=== PATIENT | male | born 1995 ===

== ENCOUNTER 2018-03-14 11:50 | Emergency (ER) | payer OTHER ==
[2018-03-14 11:59] VITALS: BMI 25.9
[2018-03-14 12:01] VITALS: RESP 18
[2018-03-14 12:53] LABS: URINE AMORPHOUS SEDIMENT RARE /ul (<OCC); URINE BACTERIA RARE (<OCC); URINE BILIRUBIN NEGATIVE (NEGATIVE); URINE BLOOD NEGATIVE (NEGATIVE); URINE CLARITY Hazy (Clear); URINE COLOR Yellow (YELLOW); URINE GLUCOSE (UA) NORMAL (Normal); URINE LEUKOCYTE ESTERASE NEG Leu/uL (Negative); URINE PROTEIN NEGATIVE (NEGATIVE); URINE UROBILINOGEN NORMAL mg/dL (0.2-1.0)
[2018-03-14 13:43] LABS: BASO # 0.1 K/uL (0.0-0.2); BASO % 0.8 % (0.0-2.0); EOS # 0.3 K/uL (0.0-0.7); EOS % 4.6 % (0.0-4.0); HEMOGLOBIN 15.2 g/dL (12.0-18.0); LYMPH # 2.3 K/uL (1.0-4.3); LYMPH % 29.9 % (20.0-40.0); MEAN CELL VOLUME 80.6 fL (80.0-94.0); MEAN CORPUSCULAR HEMOGLOBIN 27.4 pg (27.0-31.0); MEAN PLATELET VOLUME 8.2 fL (7.2-11.7); MONO # 0.6 K/uL (0.0-0.8); MONO % 7.9 % (0.0-10.0); NEUT # 4.4 K/uL (1.8-7.0); NEUT % 56.8 % (50.0-75.0); NRBC % 0.1 % (0.0-2.0); RBC 5.54 Mil/uL (4.40-5.90); RED CELL DISTRIBUTION WIDTH 13.1 % (11.5-14.5); WHITE BLOOD COUNT 7.7 K/uL (4.8-10.8)
[2018-03-14] MEDS ORDERED: Iohexol 240 (50 ml) PO STA (13:46)
[2018-03-14 13:55] LABS: BLOOD UREA NITROGEN 14 mg/dL (9-20); GFR AFRICAN-AMERICAN > 60; GFR NON-AFRICAN AMERICAN > 60
[2018-03-14 13:56] LABS: ALB/GLOB RATIO 1.5 (1.0-2.1); ALBUMIN 4.8 g/dL (3.5-5.0); ALT/SGPT 36 U/L (21-72); AST/SGOT 30 U/L (17-59); CALCIUM 9.9 mg/dl (8.6-10.4); LIPASE 86 U/L (23-300)
[2018-03-14] MEDS ORDERED: Iohexol 240 (50 ml) ONE (14:16)
[2018-03-14] MEDS ORDERED: Iodixanol 320 MG/ML 100 ML BOTTLE IV ONE (15:14)
--- NOTE | 2018-03-14 15:52 | CT ---
PROCEDURE: CT Abdomen and Pelvis with contrast HISTORY: RLQ abd pain, vomiting, COMPARISON: None. TECHNIQUE: Following oral and intravenous contrast administration, a CT examination of the abdomen and pelvis performed from the domes of the diaphragms to the symphysis pubis with reformatted datasets provided not only axial but also sagittal and coronal series. Contrast dose: Visipaque 320, 100 cc Radiation dose: Total exam DLP = 298.38 mGy-cm. This CT exam was performed using one or more of the following dose reduction techniques: Automated exposure control, adjustment of the mA and/or kV according to patient size, and/or use of iterative reconstruction technique. FINDINGS: LOWER THORAX: Linear atelectasis or fibrosis seen at the right lower lobe base minimally. No pleural or pericardial effusion identified. LIVER: Unremarkable. No gross lesion or ductal dilatation. GALLBLADDER AND BILE DUCTS: Unremarkable. PANCREAS: Unremarkable. No gross lesion or ductal dilatation. SPLEEN: Unremarkable. ADRENALS: Unremarkable. No mass. KIDNEYS AND URETERS: Unremarkable. No hydronephrosis. No solid mass. VASCULATURE: Unremarkable. No aortic aneurysm. BOWEL: Study appears unremarkable. There is no bowel obstruction or prominent mural thickening throughout small large-bowel loops. Moderate fecal loading is seen throughout the colon diffusely. This could reflect mild constipation. Clinically correlate further. APPENDIX: Normal appendix. PERITONEUM: Unremarkable. No free fluid. No free air. LYMPH NODES: Unremarkable. No enlarged lymph nodes. BLADDER: Unremarkable. REPRODUCTIVE: Unremarkable. BONES: No acute fracture. OTHER FINDINGS: None. IMPRESSION: 1. No CT evidence to suggest appendicitis. Normal-appearing appendix identified. 2. Mildly prominent fecal loading diffusely noted, borderline for constipation. 3. No ascites, measure edema, significant lymphadenopathy or free intraperitoneal gas collection appreciated.
--- NOTE | 2018-03-14 16:28 | C.PDOC ---
History Of Present Illness <Leidy Mead - Last Filed: 03/14/18 16:25> <Shyam Yeung DO - Last Filed: 03/14/18 17:52> 22-year-old male, presents to the emergency department with complaints of pain to right sided abdomen ongoing x2 weeks. Patient notes pain has been worse over the past two days, prompting visit. Pain worsens with certain leg movement and walking. Patient denies nausea/vomiting, fever, chills, chest pain or any other associated symptoms. No other complaints at this time. RLQ straight leg raise. (Shyam Yeung DO) <Leidy Mead - Last Filed: 03/14/18 16:25> <Shyam Yeung DO - Last Filed: 03/14/18 17:52> Time Seen by Provider: 03/14/18 12:52 Chief Complaint (Nursing): Abdominal Pain Past Medical History - Social History Hx Alcohol Use: No Hx Substance Use: No - Immunization History Hx Tetanus Toxoid Vaccination: No Hx Influenza Vaccination: No Hx Pneumococcal Vaccination: No <Leidy Mead - Last Filed: 03/14/18 16:25> Vital Signs: Last Vital Signs Temp 98.2 F 03/14/18 17:14 Pulse 84 03/14/18 17:14 Resp 18 03/14/18 17:14 BP 125/82 03/14/18 17:14 Pulse Ox 98 03/14/18 17:14 ED Course And Treatment - Laboratory Results Result Diagrams: 03/14/18 13:36 03/14/18 13:36 O2 Sat by Pulse Oximetry: 99 <Leidy Mead - Last Filed: 03/14/18 16:25> - Laboratory Results Result Diagrams: 03/14/18 13:36 03/14/18 13:36 <Shyam Yeung DO - Last Filed: 03/14/18 17:52> Disposition - Disposition Disposition Time: 16:26 <Leidy Mead - Last Filed: 03/14/18 16:25> <Shyam Yeung DO - Last Filed: 03/14/18 17:52> - Disposition Referrals: [facility] [Outside] Disposition: HOME/ ROUTINE Condition: GOOD Additional Instructions: Follow up with the medical doctor/clinic within 1-2 days, Return if worsened. Prescriptions: diaZEpam [Valium] 5 mg PO TID #21 tab Ibuprofen [Motrin] 600 mg PO TID #21 tab Instructions: Muscle Strain Forms: [facility] (Eth[place]ian) - Clinical Impression Clinical Impression: Muscle strain
[2018-03-14] MEDS ORDERED: Dexamethasone 4 mg/1 ml IVP STA (16:42)
[2018-03-14 17:15] VITALS: BP 125/82; PULSE 84; TEMP 98.2; O2SAT 98
--- NOTE | 2018-03-14 17:53 | C.PDOC ---
History Of Present Illness 22-year-old male, presents to the emergency department with complaints of pain to right sided abdomen ongoing x2 weeks. Patient notes pain has been worse over the past two days, prompting visit. Pain worsens with certain leg movement and walking. Patient denies nausea/vomiting, fever, chills, chest pain or any other associated symptoms. No other complaints at this time. Time Seen by Provider: 03/14/18 12:52 Chief Complaint (Nursing): Abdominal Pain History Per: Patient History/Exam Limitations: no limitations Onset/Duration Of Symptoms: Days Current Symptoms Are (Timing): Still Present Severity: Moderate Exacerbating Factors: None Alleviating Factors: None Recent travel outside of the [place]: No Past Medical History Reviewed: Historical Data, Nursing Documentation, Vital Signs Vital Signs: Last Vital Signs Temp 98.2 F 03/14/18 17:14 Pulse 84 03/14/18 17:14 Resp 18 03/14/18 17:14 BP 125/82 03/14/18 17:14 Pulse Ox 98 03/14/18 18:42 Family History: States: No Known Family Hx - Social History Hx Alcohol Use: No Hx Substance Use: No - Immunization History Hx Tetanus Toxoid Vaccination: No Hx Influenza Vaccination: No Hx Pneumococcal Vaccination: No Review Of Systems Except As Marked, All Systems Reviewed And Found Negative. Constitutional: Negative for: Fever, Chills Cardiovascular: Negative for: Chest Pain Respiratory: Negative for: Shortness of Breath Gastrointestinal: Positive for: Abdominal Pain. Negative for: Nausea, Vomiting , Diarrhea, Constipation Musculoskeletal: Negative for: Back Pain Skin: Negative for: Rash Neurological: Negative for: Weakness, Numbness, Headache, Dizziness Physical Exam - Physical Exam Appears: Non-toxic, No Acute Distress Skin: Normal Color, Warm, Dry, No Rash Head: Atraumatic, Normacephalic Eye(s): bilateral: Normal Inspection, PERRL, EOMI Nose: Normal Oral Mucosa: Moist Lips: Normal Appearing Neck: Normal ROM, Supple Chest: Symmetrical, No Tenderness Cardiovascular: Rhythm Regular, No Friction Rub, No Murmur Respiratory: Normal Breath Sounds, No Accessory Muscle Use, No Wheezing Gastrointestinal/Abdominal: Bowel Sounds (active), Soft, Tenderness (RLQ), No Guarding, No Rebound Back: No CVA Tenderness, No Vertebral Tenderness, No Paraspinal Tenderness, Straight Leg Raising Extremity: Normal ROM, No Deformity, No Swelling Neurological/Psych: Oriented x3, Normal Speech, Normal Motor Gait: Steady ED Course And Treatment - Laboratory Results Result Diagrams: 03/14/18 13:36 03/14/18 13:36 O2 Sat by Pulse Oximetry: 98 (RA) Pulse Ox Interpretation: Normal Medical Decision Making Medical Decision Making: Plan: * Bloodwork * CT Abd/Pel * UA * Decadron, Toradol, Valium, Zofran * Reassess and Disposition On re-exam, the patient reports improvement of symptoms. Lungs are CTA, heart is RRR, abdomen is soft, non-tender and tolerating PO well. Follow up with the medical doctor within 1-2 days. return if worsened. Disposition - Disposition Referrals: [facility] [Outside] Disposition: HOME/ ROUTINE Disposition Time: 16:30 Condition: GOOD Additional Instructions: Follow up with the medical doctor/clinic within 1-2 days, Return if worsened. Prescriptions: diaZEpam [Valium] 5 mg PO TID #21 tab Ibuprofen [Motrin] 600 mg PO TID #21 tab Instructions: Muscle Strain Forms: [employer] (Armenian) - Clinical Impression Clinical Impression: Muscle strain - Scribe Statement The provider has reviewed the documentation as recorded by the Scribe (Charanjit Posey) All medical record entries made by the Scribe were at my direction and personally dictated by me. I have reviewed the chart and agree that the record accurately reflects my personal performance of the history, physical exam, medical decision making, and the department course for this patient. I have also personally directed, reviewed, and agree with the discharge instructions and disposition.
== END 2018-03-14 17:25 | disposition home or self-care (01) ==
LOC: C.ER 11:50
DX: S39.011A Strain of muscle, fascia and tendon of abdomen, initial encounter (principal); X58.XXXA Exposure to other specified factors, initial encounter
CPT/HCPCS: 74177; 80053; 81001; 83690; 85025; 96374; 96375; 99285; J1100; J1885; J2405; Q9966; Q9967